=== PATIENT | male | born 1965 | race African-American/Black ===

== ENCOUNTER 2018-01-04 11:24 | Inpatient (IN) | payer OTHER ==
[2018-01-04 12:53] VITALS: BMI 19.4
--- NOTE | 2018-01-04 14:55 | HP ---
CIWA Score - CIWA Score Nausea/Vomitin-Mild Nausea/No Vomiting Muscle Tremors: 4-Moderate,w/Arms Extend Anxiety: 4-Mod. Anxious/Guarded Agitation: 4-Moderately Restless Paroxysmal Sweats: 1-Minimal Palms Moist Orientation: 3-Disoriented Date>2 days Tacttile Disturbances: 0-None Auditory Disturbances: 0-None Visual Disturbances: 0-None Headache: 1-Very Mild CIWA-Ar Total Score: 18 Admission ROS S - HPI Chief Complaint: withdrawal sx Allergies/Adverse Reactions: Allergies Allergy/AdvReac Type Severity Reaction Status Date / Time strawberry [[place]] Allergy Severe Hives Verified 01/04/18 14:43 No Known Drug Allergies Allergy Verified 01/04/18 14:43 NKDA Allergy Uncoded 07/21/14 15:15 History of Present Illness: 52 years old male with long history of alcohol nicotine dependence methadone 10 mg daily last dose 12/28/17 patient dose not want to stay in the methadone program does not want the methadone while in detox patient dose not want to the psychiatrist Exam Limitations: No Limitations - Ebola screening Have you traveled outside of the country in the last 21 days: No Have you had contact with anyone from an Ebola affected area: No Have you been sick,other than usual withdrawal symptoms: No Do you have a fever: No - Review of Systems Constitutional: No Symptoms Reported, Chills, Weight Stable EENT: reports: No Symptoms Reported Respiratory: reports: No Symptoms reported Cardiac: reports: No Symptoms Reported GI: reports: Nausea, Poor Fluid Intake, Abdominal cramping : reports: No Symptoms Reported, Other (left kidney removed) Musculoskeletal: reports: No Symptoms Reported Integumentary: reports: No Symptoms Reported Neuro: reports: Tremors Endocrine: reports: No Symptoms Reported Hematology: reports: No Symptoms Reported Psychiatric: reports: Judgement Intact, Mood/Affect Appropiate Other Systems: Reviewed and Negative Patient History - Patient Medical History Hx Anemia: No Hx Asthma: No Hx Chronic Obstructive Pulmonary Disease (COPD): No Hx Cancer: No Hx Cardiac Disorders: No Hx Congestive Heart Failure: No Hx Hypertension: Yes Hx Hypercholesterolemia: No Hx Pacemaker: No HX Cerebrovascular Accident: No Hx Seizures: No Hx Dementia: No Hx Diabetes: No Hx Gastrointestinal Disorders: No Hx Liver Disease: No Hx Genitourinary Disorders: No Hx Sexually Transmitted Disorders: No Hx Renal Disease (ESRD): No Hx Thyroid Disease: No Hx Human Immunodeficiency Virus (HIV): No (NEGTATIVE HX) Hx Hepatitis C: No Hx Depression: No Hx Suicide Attempt: No Hx Bipolar Disorder: No Hx Schizophrenia: No (no meds) - Patient Surgical History Past Surgical History: Yes Hx Neurologic Surgery: Yes ( FACIAL SX DUE TO THROWN OUT OF 6TH FLOOR WINDOW in 2000 and 2007) Hx Cataract Extraction: No Hx Cardiac Surgery: No Hx Lung Surgery: No Hx Breast Surgery: No Hx Breast Biopsy: No Hx Abdominal Surgery: No Hx Appendectomy: No Hx Cholecystectomy: No Hx Genitourinary Surgery: Yes (2003 left kidney) Hx Orthopedic Surgery: No Other Surgical History: mandible in 06/09/2014, elbows/knees (fall) Anesthesia Reaction: No - PPD History Previous Implant?: Yes Documented Results: Negative w/proof Implanted On Prior R Admission?: Yes Date: 07/12/14 Results: 0 mm PPD to be Administered?: Yes - Smoking Cessation Smoking history: Current every day smoker Have you smoked in the past 12 months: Yes Aproximately how many cigarettes per day: 3 Cigars Per Day: 0 Hx Chewing Tobacco Use: No Initiated information on smoking cessation: Yes 'Breaking Loose' booklet given: 01/04/18 - Substance & Tx. History Hx Alcohol Use: Yes Hx Substance Use: Yes Substance Use Type: Alcohol, Cocaine, Heroin Hx Substance Use Treatment: Yes (2012) Family Disease History - Family Disease History Family Disease History: Heart Disease: Father (), CA: Grandparent, Mother (), Respiratory: Brother, Sister, Other: Father, Mother Admission Physical Exam S - Vital Signs Vital Signs: Vital Signs - 24 hr 01/04/18 12:46 Temperature 96.2 F L Pulse Rate 70 Respiratory 20 Rate Blood Pressure 112/76 - Physical General Appearance: Yes: Appropriately Dressed, Thin, Tremorous, Irritable, Sweating, Anxious HEENTM: Yes: Hearing grossly Normal, Normal ENT Inspection, Normocephalic, Normal Voice Respiratory: Yes: Chest Non-Tender, Lungs Clear, Normal Breath Sounds, No Respiratory Distress, No Accessory Muscle Use Neck: Yes: Supple, Trachea in good position Cardiology: Yes: S1, S2, Irregularly Irregular Abdominal: Yes: Non Tender, Soft, Increased Bowel Sounds Genitourinary: Yes: Within Normal Limits Back: Yes: Normal Inspection Musculoskeletal: Yes: full range of Motion, Gait Steady Extremities: Yes: Normal Inspection (scars elbows), Normal Range of Motion, Non- Tender, Tremors Neurological: Yes: Alert, Motor Strength 5/5, Normal Mood/Affect, Normal Response Integumentary: Yes: Warm Lymphatic: Yes: Within Normal Limits - Diagnostic (1) Alcohol dependence with uncomplicated withdrawal Current Visit: Yes Status: Acute (2) Status post nephrectomy Current Visit: Yes Status: Resolved Comment: left (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 Qualifiers: Encounter type: sequela Laterality: unspecified laterality Qualified Code (s): S04.50XS - Injury of facial nerve, unspecified side, sequela Comment: in the process of reconstruction 2000 - 2009 Cleared for Admission [facility] - Detox or Rehab [facility] Level of Care: Medically Managed Detox Regimen/Protocol: Librium [facility] Breath Alcohol Content Breath Alcohol Content: 0 Urine Drug Screen - Results Drug Screen Negative: No Urine Drug Screen Results: MICHAEL-Cocaine, MTD-Methadone
[2018-01-04] MEDS ORDERED: NICOTINE POLACRILEX 2 MG GUM BC PRN (15:14)
[2018-01-04] MEDS ORDERED: ACETAMINOPHEN 325 MG TABLET (FP) PO PRN (15:14)
[2018-01-04] MEDS ORDERED: LOPERAMIDE HCL 2 MG CAPSULE PO PRN (15:14)
[2018-01-04] MEDS ORDERED: MAGNESIUM HYDROX 2400MG/30ML ORAL SUSPENSION 30 ML CUP PO PRN (15:14)
[2018-01-04] MEDS ORDERED: IBUPROFEN 400 MG TABLET (FP) PO PRN (15:14)
[2018-01-04] MEDS ORDERED: guaiFENesin/D-METHORPHAN HB 10 ML UNIT-DOSE CUPS PO PRN (15:14)
[2018-01-04] MEDS ORDERED: chlordiazePOXIDE HCL 25 MG CAPSULE PO PRN (15:14)
[2018-01-04] MEDS ORDERED: MAG HYDROX/AL HYDROX/SIMETH 30 ML UNIT-DOSE CUP PO PRN (15:14)
[2018-01-04] MEDS ORDERED: MAGNESIUM CITRATE 300 ML BOTTLE PO PRN (15:14)
[2018-01-04] MEDS ORDERED: MENTHOL/PHENOL 1 EACH UD MM PRN (15:14)
[2018-01-04] MEDS ORDERED: P-EPHED 60MG/TRIPROLIDI 2.5MG TABLET PO PRN (15:14)
[2018-01-04] MEDS: THIAMINE HCL 100 MG TABLET (FP) PO SCH (22:13)
[2018-01-04] MEDS: chlordiazePOXIDE HCL 25 MG CAPSULE PO SCH (22:14)
[2018-01-05 00:31] LABS: URINE APPEARANCE SLCLOUDY; URINE BILIRUBIN NEGATIVE (NEGATIVE); URINE BLOOD NEGATIVE (NEGATIVE); URINE COLOR YELLOW; URINE GLUCOSE (UA) NEGATIVE (NEGATIVE); URINE KETONE NEGATIVE (NEGATIVE); URINE LEUK ESTERASE NEGATIVE (NEGATIVE); URINE NITRITE NEGATIVE (NEGATIVE); URINE UROBILINOGEN NEGATIVE mg/dL (0.2-1.0)
[2018-01-05 00:44] LABS: URINE PROTEIN 1+ (NEGATIVE)
[2018-01-05 00:53] LABS: CALCIUM OXALATE CRYSTALS MODERATE /hpf (NONE SEEN); EPI CELLS RARE /HPF (FEW); URINE HYALINE CAST 3 /lpf; URINE MUCUS MANY
[2018-01-05] MEDS: chlordiazePOXIDE HCL 25 MG CAPSULE PO SCH ×4 (05:58→22:27)
[2018-01-05 10:07] LABS: HEMATOCRIT 44.6 % (35.4-49); HEMOGLOBIN 14.5 GM/dL (11.7-16.9); MCH 28.2 pg (25.7-33.7); MCHC 32.5 g/dl (32.0-35.9); MEAN CELL VOLUME 86.8 fl (80-96); MEAN PLT VOLUME 10.1 fl (7.5-11.1); PLATELET COUNT 227 K/MM3 (134-434); RBC 5.14 M/mm3 (4.00-5.60); RDW 14.4 % (11.9-15.9); WHITE BLOOD COUNT 7.8 K/mm3 (4.0-10.0)
[2018-01-05 10:27] LABS: CHLORIDE 105 mmol/L (98-107); POTASSIUM 4.1 mmol/L (3.5-5.1); SODIUM 140 mmol/L (136-145)
[2018-01-05 10:33] LABS: ALBUMIN 3.9 g/dl (3.4-5.0); ALK PHOS 88 U/L (45-117); ANION GAP 6 (8-16); BILIRUBIN,TOTAL 0.5 mg/dL (0.2-1.0); BLOOD UREA NITROGEN 24 mg/dL (7-18); CALCIUM 8.9 mg/dL (8.5-10.1); CO2 29 mmol/L (21-32); CREATININE 1.1 mg/dL (0.7-1.3); GLUCOSE,RANDOM 87 mg/dL (74-106); SGOT/AST 40 U/L (15-37); SGPT/ALT 34 U/L (12-78); TOT PROT 7.5 g/dl (6.4-8.2)
[2018-01-05] MEDS: PRENATAL VITAMINS W/ FOLIC ACID TABLET (FP) PO SCH (10:50)
[2018-01-05] MEDS: HYDROCHLOROTHIAZIDE 25 MG TABLET (FP) PO SCH (10:50)
[2018-01-05] MEDS: ASPIRIN 81 MG CHEWABLE TABLETS PO SCH (10:50)
[2018-01-05] MEDS: NICOTINE 14 MG/24 HOURS TOPICAL PATCH TD SCH (10:50)
--- NOTE | 2018-01-05 15:11 | EKG ---
Test Reason : Blood Pressure : / mmHG Vent. Rate : 070 BPM Atrial Rate : 070 BPM P-R Int : 120 ms QRS Dur : 080 ms QT Int : 462 ms P-R-T Axes : 055 095 094 degrees QTc Int : 498 ms NORMAL SINUS RHYTHM RIGHTWARD AXIS PROLONGED QT ABNORMAL ECG NO PREVIOUS ECGS AVAILABLE Confirmed by ABHISHEK AG MD ([id number]) on 01/05/2018 3:11:24 PM Referred By: Confirmed By:ABHISHEK AG MD
--- NOTE | 2018-01-05 16:12 | PN ---
[facility] CIWA - CIWA Score Nausea/Vomitin-No Nausea/No Vomiting Muscle Tremors: 3 Anxiety: 4-Mod. Anxious/Guarded Agitation: 3 Paroxysmal Sweats: 3 Orientation: 0-Oriented Tacttile Disturbances: 2-Mild Itch/Numbness/Burn Auditory Disturbances: 2-Mild Harshness/Frighten Visual Disturbances: 0-None Headache: 0-None Present CIWA-Ar Total Score: 17 BHS Progress Note (SOAP) Subjective: Tremors, Body Aches, Stomach Cramping, Sweating. Objective: PATIENT A & O X 3, OBSERVED AMBULATING ON UNIT. NO ACUTE DISTRESS. 01/05/18 16:11 Vital Signs Temperature 97.3 F L 01/05/18 13:39 Pulse Rate 73 01/05/18 13:39 Respiratory Rate 18 01/05/18 13:39 Blood Pressure 143/85 01/05/18 13:39 O2 Sat by Pulse Oximetry (%) Laboratory Tests 01/05/18 01/05/18 01/05/18 00:05 06:00 06:00 WBC 7.8 D RBC 5.14 Hgb 14.5 Hct 44.6 MCV 86.8 MCH 28.2 MCHC 32.5 RDW 14.4 Plt Count 227 MPV 10.1 Sodium 140 Potassium 4.1 Chloride 105 Carbon Dioxide 29 Anion Gap 6 L BUN 24 H D Creatinine 1.1 Creat Clearance w eGFR > 60 Random Glucose 87 D Calcium 8.9 Total Bilirubin 0.5 D AST 40 H D ALT 34 Alkaline Phosphatase 88 Total Protein 7.5 Albumin 3.9 Urine Color Yellow Urine Appearance Slcloudy Urine pH 5.0 Ur Specific [place] 1.024 Urine Protein 1+ H Urine Glucose (UA) Negative Urine Ketones Negative Urine Blood Negative Urine Nitrite Negative Urine Bilirubin Negative Urine Urobilinogen Negative Ur Leukocyte Esterase Negative Urine WBC (Auto) 5 Urine RBC (Auto) 8 Ur Epithelial Cells Rare Calcium Oxalate Crystal Moderate Hyaline Casts 3 Urine Mucus Many RPR Titer 01/05/18 06:00 WBC RBC Hgb Hct MCV MCH MCHC RDW Plt Count MPV Sodium Potassium Chloride Carbon Dioxide Anion Gap BUN Creatinine Creat Clearance w eGFR Random Glucose Calcium Total Bilirubin AST ALT Alkaline Phosphatase Total Protein Albumin Urine Color Urine Appearance Urine pH Ur Specific [place] Urine Protein Urine Glucose (UA) Urine Ketones Urine Blood Urine Nitrite Urine Bilirubin Urine Urobilinogen Ur Leukocyte Esterase Urine WBC (Auto) Urine RBC (Auto) Ur Epithelial Cells Calcium Oxalate Crystal Hyaline Casts Urine Mucus RPR Titer Nonreactive LABS NOTED. Assessment: 01/05/18 16:11 WITHDRAWAL SYMPTOMS. Plan: CONTINUE DETOX. INCREASE DAILY PO FLUID INTAKE.
[2018-01-05] MEDS: THIAMINE HCL 100 MG TABLET (FP) PO SCH (22:27)
[2018-01-06] MEDS: chlordiazePOXIDE HCL 25 MG CAPSULE PO SCH ×3 (05:37→17:04)
[2018-01-06] MEDS: PRENATAL VITAMINS W/ FOLIC ACID TABLET (FP) PO SCH (10:28)
[2018-01-06] MEDS: ASPIRIN 81 MG CHEWABLE TABLETS PO SCH (10:29)
[2018-01-06] MEDS: NICOTINE 14 MG/24 HOURS TOPICAL PATCH TD SCH (10:29)
[2018-01-06] MEDS: HYDROCHLOROTHIAZIDE 25 MG TABLET (FP) PO SCH (10:29)
--- NOTE | 2018-01-06 16:36 | PN ---
[facility] CIWA - CIWA Score Nausea/Vomitin-No Nausea/No Vomiting Muscle Tremors: 3 Anxiety: 3 Agitation: 2 Paroxysmal Sweats: 3 Orientation: 2-Disoriented Date<2 days Tacttile Disturbances: 2-Mild Itch/Numbness/Burn Auditory Disturbances: 1-Very Mild Visual Disturbances: 0-None Headache: 0-None Present CIWA-Ar Total Score: 16 BHS Progress Note (SOAP) Subjective: Tremors, Body Aches, Sweating,. Objective: PATIENT A & O X 2 (UNCERTAIN ABOUT CURRENT DAY/ DATE). PATIENT OBSERVED AMBULATING ON UNIT. NO ACUTE DISTRESS. 01/06/18 16:34 Vital Signs Temperature 97.3 F L 01/06/18 14:59 Pulse Rate 71 01/06/18 14:59 Respiratory Rate 18 01/06/18 14:59 Blood Pressure 147/85 01/06/18 14:59 O2 Sat by Pulse Oximetry (%) Laboratory Tests 01/05/18 01/05/18 01/05/18 00:05 06:00 06:00 WBC 7.8 D RBC 5.14 Hgb 14.5 Hct 44.6 MCV 86.8 MCH 28.2 MCHC 32.5 RDW 14.4 Plt Count 227 MPV 10.1 Sodium 140 Potassium 4.1 Chloride 105 Carbon Dioxide 29 Anion Gap 6 L BUN 24 H D Creatinine 1.1 Creat Clearance w eGFR > 60 Random Glucose 87 D Calcium 8.9 Total Bilirubin 0.5 D AST 40 H D ALT 34 Alkaline Phosphatase 88 Total Protein 7.5 Albumin 3.9 Urine Color Yellow Urine Appearance Slcloudy Urine pH 5.0 Ur Specific [place] 1.024 Urine Protein 1+ H Urine Glucose (UA) Negative Urine Ketones Negative Urine Blood Negative Urine Nitrite Negative Urine Bilirubin Negative Urine Urobilinogen Negative Ur Leukocyte Esterase Negative Urine WBC (Auto) 5 Urine RBC (Auto) 8 Ur Epithelial Cells Rare Calcium Oxalate Crystal Moderate Hyaline Casts 3 Urine Mucus Many RPR Titer 01/05/18 06:00 WBC RBC Hgb Hct MCV MCH MCHC RDW Plt Count MPV Sodium Potassium Chloride Carbon Dioxide Anion Gap BUN Creatinine Creat Clearance w eGFR Random Glucose Calcium Total Bilirubin AST ALT Alkaline Phosphatase Total Protein Albumin Urine Color Urine Appearance Urine pH Ur Specific [place] Urine Protein Urine Glucose (UA) Urine Ketones Urine Blood Urine Nitrite Urine Bilirubin Urine Urobilinogen Ur Leukocyte Esterase Urine WBC (Auto) Urine RBC (Auto) Ur Epithelial Cells Calcium Oxalate Crystal Hyaline Casts Urine Mucus RPR Titer Nonreactive LABS NOTED. Assessment: 01/06/18 16:35 WITHDRAWAL SYMPTOMS. Plan: CONTINUE DETOX.
[2018-01-06] MEDS: chlordiazePOXIDE 5 MG CAPSULE PO SCH (22:39)
[2018-01-06] MEDS: THIAMINE HCL 100 MG TABLET (FP) PO SCH (22:39)
[2018-01-07] MEDS: chlordiazePOXIDE 5 MG CAPSULE PO SCH ×3 (05:29→17:47)
[2018-01-07] MEDS: ASPIRIN 81 MG CHEWABLE TABLETS PO SCH (10:32)
[2018-01-07] MEDS: NICOTINE 14 MG/24 HOURS TOPICAL PATCH TD SCH (10:32)
[2018-01-07] MEDS: PRENATAL VITAMINS W/ FOLIC ACID TABLET (FP) PO SCH (10:32)
[2018-01-07] MEDS: HYDROCHLOROTHIAZIDE 25 MG TABLET (FP) PO SCH (10:32)
--- NOTE | 2018-01-07 14:15 | PN ---
BHS Progress Note (SOAP) Subjective: Anxious, sweating, interrupted sleep Objective: 01/07/18 14:11 Last Vital Signs Temp Pulse Resp BP Pulse Ox 96.0 F L 76 18 95/68 01/07/18 09:38 01/07/18 09:38 01/07/18 09:38 01/07/18 09:38 Laboratory Tests 01/05/18 01/05/18 01/05/18 00:05 06:00 06:00 WBC 7.8 D RBC 5.14 Hgb 14.5 Hct 44.6 MCV 86.8 MCH 28.2 MCHC 32.5 RDW 14.4 Plt Count 227 MPV 10.1 Sodium 140 Potassium 4.1 Chloride 105 Carbon Dioxide 29 Anion Gap 6 L BUN 24 H D Creatinine 1.1 Creat Clearance w eGFR > 60 Random Glucose 87 D Calcium 8.9 Total Bilirubin 0.5 D AST 40 H D ALT 34 Alkaline Phosphatase 88 Total Protein 7.5 Albumin 3.9 Urine Color Yellow Urine Appearance Slcloudy Urine pH 5.0 Ur Specific [place] 1.024 Urine Protein 1+ H Urine Glucose (UA) Negative Urine Ketones Negative Urine Blood Negative Urine Nitrite Negative Urine Bilirubin Negative Urine Urobilinogen Negative Ur Leukocyte Esterase Negative Urine WBC (Auto) 5 Urine RBC (Auto) 8 Ur Epithelial Cells Rare Calcium Oxalate Crystal Moderate Hyaline Casts 3 Urine Mucus Many RPR Titer 01/05/18 06:00 WBC RBC Hgb Hct MCV MCH MCHC RDW Plt Count MPV Sodium Potassium Chloride Carbon Dioxide Anion Gap BUN Creatinine Creat Clearance w eGFR Random Glucose Calcium Total Bilirubin AST ALT Alkaline Phosphatase Total Protein Albumin Urine Color Urine Appearance Urine pH Ur Specific [place] Urine Protein Urine Glucose (UA) Urine Ketones Urine Blood Urine Nitrite Urine Bilirubin Urine Urobilinogen Ur Leukocyte Esterase Urine WBC (Auto) Urine RBC (Auto) Ur Epithelial Cells Calcium Oxalate Crystal Hyaline Casts Urine Mucus RPR Titer Nonreactive Labs reviewed: bun 24, UA shows 1+ protein Assessment: 01/07/18 14:12 Withdrawal symptoms Noted with azotemia and proteinuria Plan: Continue detox Azotemia: encouraged increased PO hydration (water) Proteinuria: encouraged to drink more water, repeat UA
[2018-01-07] MEDS: chlordiazePOXIDE HCL 10 MG CAPSULE PO SCH (22:26)
[2018-01-07] MEDS: THIAMINE HCL 100 MG TABLET (FP) PO SCH (22:26)
[2018-01-08] MEDS: chlordiazePOXIDE HCL 10 MG CAPSULE PO SCH ×2 (05:21→12:02)
--- NOTE | 2018-01-08 09:41 | PN ---
BHS Progress Note (SOAP) Subjective: LAST DAY OF LIBRIUM. ALERT O X 3. NAD. PT SCHEDULED TO GO TO REHAB. Objective: 01/08/18 11:59 Vital Signs Temperature 95.6 F L 01/08/18 09:37 Pulse Rate 75 01/08/18 09:37 Respiratory Rate 18 01/08/18 09:37 Blood Pressure 110/69 01/08/18 09:37 O2 Sat by Pulse Oximetry (%) Laboratory Last Values WBC 7.8 K/mm3 (4.0-10.0) D 01/05/18 06:00 RBC 5.14 M/mm3 (4.00-5.60) 01/05/18 06:00 Hgb 14.5 GM/dL (11.7-16.9) 01/05/18 06:00 Hct 44.6 % (35.4-49) 01/05/18 06:00 MCV 86.8 fl (80-96) 01/05/18 06:00 MCH 28.2 pg (25.7-33.7) 01/05/18 06:00 MCHC 32.5 g/dl (32.0-35.9) 01/05/18 06:00 RDW 14.4 % (11.9-15.9) 01/05/18 06:00 Plt Count 227 K/MM3 (134-434) 01/05/18 06:00 MPV 10.1 fl (7.5-11.1) 01/05/18 06:00 Sodium 140 mmol/L (136-145) 01/05/18 06:00 Potassium 4.1 mmol/L (3.5-5.1) 01/05/18 06:00 Chloride 105 mmol/L (98-107) 01/05/18 06:00 Carbon Dioxide 29 mmol/L (21-32) 01/05/18 06:00 Anion Gap 6 (8-16) L 01/05/18 06:00 BUN 24 mg/dL (7-18) H D 01/05/18 06:00 Creatinine 1.1 mg/dL (0.7-1.3) 01/05/18 06:00 Creat Clearance w eGFR > 60 (>60) 01/05/18 06:00 Random Glucose 87 mg/dL (74-106) D 01/05/18 06:00 Calcium 8.9 mg/dL (8.5-10.1) 01/05/18 06:00 Total Bilirubin 0.5 mg/dL (0.2-1.0) D 01/05/18 06:00 AST 40 U/L (15-37) H D 01/05/18 06:00 ALT 34 U/L (12-78) 01/05/18 06:00 Alkaline Phosphatase 88 U/L (45-117) 01/05/18 06:00 Total Protein 7.5 g/dl (6.4-8.2) 01/05/18 06:00 Albumin 3.9 g/dl (3.4-5.0) 01/05/18 06:00 Urine Color Ltyellow 01/08/18 08:30 Urine Appearance Slcloudy 01/08/18 08:30 Urine pH 7.0 (5.0-8.0) D 01/08/18 08:30 Ur Specific [place] 1.015 (1.001-1.035) 01/08/18 08:30 Urine Protein Negative (NEGATIVE) 01/08/18 08:30 Urine Glucose (UA) Negative (NEGATIVE) 01/08/18 08:30 Urine Ketones Negative (NEGATIVE) 01/08/18 08:30 Urine Blood Negative (NEGATIVE) 01/08/18 08:30 Urine Nitrite Negative (NEGATIVE) 01/08/18 08:30 Urine Bilirubin Negative (NEGATIVE) 01/08/18 08:30 Urine Urobilinogen Negative mg/dL (0.2-1.0) 01/08/18 08:30 Ur Leukocyte Esterase Negative (NEGATIVE) 01/08/18 08:30 Urine WBC (Auto) 5 /hpf (3-5) 01/05/18 00:05 Urine RBC (Auto) 8 /hpf (0-3) 01/05/18 00:05 Ur Epithelial Cells Rare /HPF (FEW) 01/05/18 00:05 Calcium Oxalate Crystal Moderate /hpf (NONE SEEN) 01/05/18 00:05 Hyaline Casts 3 /lpf 01/05/18 00:05 Urine Mucus Many 01/05/18 00:05 RPR Titer Nonreactive (NONREACTIVE) 01/05/18 06:00 Assessment: 01/08/18 11:59 WITHDRAWAL SX Plan: D/C PT TO REHAB IF BED AVAILABLE. ADDENDUM: PT WENT HOME TODAY REFERRED TO [facility] PER COUNSELOR JEFFREY ROBLES
[2018-01-08 10:30] LABS: URINE APPEARANCE SLCLOUDY; URINE BILIRUBIN NEGATIVE (NEGATIVE); URINE BLOOD NEGATIVE (NEGATIVE); URINE COLOR LTYELLOW; URINE GLUCOSE (UA) NEGATIVE (NEGATIVE); URINE KETONE NEGATIVE (NEGATIVE); URINE LEUK ESTERASE NEGATIVE (NEGATIVE); URINE NITRITE NEGATIVE (NEGATIVE); URINE PROTEIN NEGATIVE (NEGATIVE); URINE UROBILINOGEN NEGATIVE mg/dL (0.2-1.0)
[2018-01-08] MEDS: HYDROCHLOROTHIAZIDE 25 MG TABLET (FP) PO SCH (10:51)
[2018-01-08] MEDS: ASPIRIN 81 MG CHEWABLE TABLETS PO SCH (10:51)
[2018-01-08] MEDS: PRENATAL VITAMINS W/ FOLIC ACID TABLET (FP) PO SCH (10:51)
[2018-01-08] MEDS: NICOTINE 14 MG/24 HOURS TOPICAL PATCH TD SCH (10:51)
[2018-01-08 13:51] VITALS: BP 105/73; PULSE 85; TEMP 97.8
--- NOTE | 2018-01-08 16:16 | DS ---
[facility] Detox Discharge Summary Admission Date: 01/04/18 - History Present History: Alcohol Dependence Pertinent Past History: s/p nephrectomy facial nerve trauma nicotine dependence - Physical Exam Results Vital Signs: Vital Signs Temperature 97.8 F 01/08/18 13:50 Pulse Rate 85 01/08/18 13:50 Respiratory Rate 18 01/08/18 13:50 Blood Pressure 105/73 01/08/18 13:50 O2 Sat by Pulse Oximetry (%) Pertinent Admission Physical Exam Findings: Vital Signs Temperature 97.8 F 01/08/18 13:50 Pulse Rate 85 01/08/18 13:50 Respiratory Rate 18 01/08/18 13:50 Blood Pressure 105/73 01/08/18 13:50 O2 Sat by Pulse Oximetry (%) Laboratory Last Values WBC 7.8 K/mm3 (4.0-10.0) D 01/05/18 06:00 RBC 5.14 M/mm3 (4.00-5.60) 01/05/18 06:00 Hgb 14.5 GM/dL (11.7-16.9) 01/05/18 06:00 Hct 44.6 % (35.4-49) 01/05/18 06:00 MCV 86.8 fl (80-96) 01/05/18 06:00 MCH 28.2 pg (25.7-33.7) 01/05/18 06:00 MCHC 32.5 g/dl (32.0-35.9) 01/05/18 06:00 RDW 14.4 % (11.9-15.9) 01/05/18 06:00 Plt Count 227 K/MM3 (134-434) 01/05/18 06:00 MPV 10.1 fl (7.5-11.1) 01/05/18 06:00 Sodium 140 mmol/L (136-145) 01/05/18 06:00 Potassium 4.1 mmol/L (3.5-5.1) 01/05/18 06:00 Chloride 105 mmol/L (98-107) 01/05/18 06:00 Carbon Dioxide 29 mmol/L (21-32) 01/05/18 06:00 Anion Gap 6 (8-16) L 01/05/18 06:00 BUN 24 mg/dL (7-18) H D 01/05/18 06:00 Creatinine 1.1 mg/dL (0.7-1.3) 01/05/18 06:00 Creat Clearance w eGFR > 60 (>60) 01/05/18 06:00 Random Glucose 87 mg/dL (74-106) D 01/05/18 06:00 Calcium 8.9 mg/dL (8.5-10.1) 01/05/18 06:00 Total Bilirubin 0.5 mg/dL (0.2-1.0) D 01/05/18 06:00 AST 40 U/L (15-37) H D 01/05/18 06:00 ALT 34 U/L (12-78) 01/05/18 06:00 Alkaline Phosphatase 88 U/L (45-117) 01/05/18 06:00 Total Protein 7.5 g/dl (6.4-8.2) 01/05/18 06:00 Albumin 3.9 g/dl (3.4-5.0) 01/05/18 06:00 Urine Color Ltyellow 01/08/18 08:30 Urine Appearance Slcloudy 01/08/18 08:30 Urine pH 7.0 (5.0-8.0) D 01/08/18 08:30 Ur Specific [place] 1.015 (1.001-1.035) 01/08/18 08:30 Urine Protein Negative (NEGATIVE) 01/08/18 08:30 Urine Glucose (UA) Negative (NEGATIVE) 01/08/18 08:30 Urine Ketones Negative (NEGATIVE) 01/08/18 08:30 Urine Blood Negative (NEGATIVE) 01/08/18 08:30 Urine Nitrite Negative (NEGATIVE) 01/08/18 08:30 Urine Bilirubin Negative (NEGATIVE) 01/08/18 08:30 Urine Urobilinogen Negative mg/dL (0.2-1.0) 01/08/18 08:30 Ur Leukocyte Esterase Negative (NEGATIVE) 01/08/18 08:30 Urine WBC (Auto) 5 /hpf (3-5) 01/05/18 00:05 Urine RBC (Auto) 8 /hpf (0-3) 01/05/18 00:05 Ur Epithelial Cells Rare /HPF (FEW) 01/05/18 00:05 Calcium Oxalate Crystal Moderate /hpf (NONE SEEN) 01/05/18 00:05 Hyaline Casts 3 /lpf 01/05/18 00:05 Urine Mucus Many 01/05/18 00:05 RPR Titer Nonreactive (NONREACTIVE) 01/05/18 06:00 - Treatment Hospital Course: Detox Protocol Followed, Detoxed Safely, Responded well, Discharged Condition Good, Rehab Referral Accepted Patient has Accepted a Rehab Referral to: [facility] - Medication Discharge Medications: Ambulatory Orders Aspirin [ASA -] 81 mg PO DAILY 01/04/18 Hydrochlorothiazide [Hctz -] 25 mg PO DAILY 01/04/18 Multivitamins [Tab-A-Vit -] 1 tab PO DAILY 01/04/18 - Diagnosis (1) Alcohol dependence with uncomplicated withdrawal Status: Acute (2) Nicotine dependence Status: Acute Qualifiers: Nicotine product type: cigarettes Substance use status: in withdrawal Qualified Code(s): F17.213 - Nicotine dependence, cigarettes, with withdrawal (3) Alcohol dependence Status: Chronic (4) Cocaine dependence Status: Chronic (5) Facial nerve trauma Status: Chronic Qualifiers: Encounter type: sequela Laterality: unspecified laterality Qualified Code (s): S04.50XS - Injury of facial nerve, unspecified side, sequela (6) Hypertension Status: Chronic Qualifiers: Hypertension type: essential hypertension Qualified Code(s): I10 - Essential (primary) hypertension (7) Status post nephrectomy Status: Resolved - AMA Did Patient Leave Against Medical Advice: No
== END 2018-01-08 01:55 | disposition home or self-care (01) | DRG 774 ==
LOC: YASAS 11:24 → Y3N 15:30
PROVIDERS: ADMIT Internal Medicine; ATTEND Internal Medicine
PROC: HZ2ZZZZ Detoxification Services for Substance Abuse Treatment (ICD-10-PCS; principal; 2018-01-04)
DX: F10.230 Alcohol dependence with withdrawal, uncomplicated (principal); F14.20 Cocaine dependence, uncomplicated; F17.213 Nicotine dependence, cigarettes, with withdrawal; I10 Essential (primary) hypertension; Z79.82 Long term (current) use of aspirin; Z90.5 Acquired absence of kidney
CPT/HCPCS: 36415; 80053; 81003; 81015; 85027; 86593; 93005; 93010

== ENCOUNTER 2023-06-05 16:26 | Inpatient (IN) | payer OTHER ==
[2023-06-05 17:55] VITALS: BMI 16.1
[2023-06-05] MEDS ORDERED: P-EPHED 60MG/TRIPROLIDI 2.5MG TABLET PO PRN (20:09)
[2023-06-05] MEDS ORDERED: guaiFENesin 600 MG TABLET.ER (FP) PO PRN (20:09)
[2023-06-05] MEDS ORDERED: BENZOCAINE/MENTHOL (CHLORASEPTIC ) LOZENGE MM PRN (20:09)
[2023-06-05] MEDS ORDERED: MAGNESIUM HYDROX 2400MG/30ML ORAL SUSPENSION 30 ML CUP PO PRN (20:09)
[2023-06-05] MEDS ORDERED: IBUPROFEN 600 MG TABLET (FP) PO PRN (20:09)
[2023-06-05] MEDS ORDERED: IBUPROFEN 400 MG TABLET (FP) PO PRN (20:09)
[2023-06-05] MEDS ORDERED: NICOTINE POLACRILEX 2 MG GUM BUC PRN (20:09)
[2023-06-05] MEDS ORDERED: POLYETHYLENE GLYCOL (HEALTHYLAX) 3350 17 GM PACKET PO PRN (20:09)
[2023-06-05] MEDS ORDERED: BENZONATATE 200 MG CAPSULE PO PRN (20:09)
[2023-06-05] MEDS ORDERED: hydrOXYzine PAMOATE 25 MG CAPSULE (FP) PO PRN (20:09)
[2023-06-05] MEDS ORDERED: MAG HYDROX/AL HYDROX/SIMETH 30 ML UNIT-DOSE CUP PO PRN (20:09)
[2023-06-05] MEDS ORDERED: AMMONIUM LACTATE 12% LOTION 225 GM BOTTLE TP PRN (20:09)
[2023-06-05] MEDS ORDERED: NALOXONE HCL (KLOXXADO) 8 MG SPRAY NS PRN (20:09)
[2023-06-05] MEDS ORDERED: COLLOIDAL OATMEAL 1 BAR EACH TP PRN (20:09)
[2023-06-05] MEDS ORDERED: NALOXONE HCL 0.4 MG/ML VIAL IM PRN (20:09)
[2023-06-05] MEDS ORDERED: LOPERAMIDE HCL 2 MG CAPSULE PO PRN (20:09)
[2023-06-05] MEDS ORDERED: MELATONIN 5 MG TABLETS PO SCH (22:00)
[2023-06-05] MEDS ORDERED: TUBERCULIN PPD 5 TU/0.1ML SYRINGE (IN PATIENT USE ONLY) ID ONE (23:55)
[2023-06-06] MEDS: THIAMINE HCL 100 MG TABLET (FP) PO SCH ×2 (01:11→21:32)
[2023-06-06] MEDS ORDERED: TUBERCULIN PPD 5 TU/0.1ML VIAL ID ONE (06:41)
[2023-06-06] MEDS: PRENATAL VITAMINS W/ FOLIC ACID TABLET (FP) PO SCH (09:18)
[2023-06-06] MEDS: ASPIRIN 81 MG CHEWABLE TABLETS PO SCH (09:18)
[2023-06-06 13:51] LABS: HEMATOCRIT 40.8 % (35.4-49); HEMOGLOBIN 13.3 GM/dL (11.7-16.9); MCH 27.3 pg (25.7-33.7); MCHC 32.5 g/dl (32.0-35.9); MEAN CELL VOLUME 83.9 fl (80-96); MEAN PLT VOLUME 9.7 fl (7.5-11.1); PLATELET COUNT 258 10^3/uL (134-434); RBC 4.87 M/mm3 (4.00-5.60); RDW 15.1 % (11.9-15.9); WHITE BLOOD COUNT 5.1 K/mm3 (4.0-10.0)
[2023-06-06 14:32] LABS: POTASSIUM 4.6 mmol/L (3.5-5.1)
[2023-06-06 14:34] LABS: CALCIUM 8.6 mg/dL (8.5-10.1)
[2023-06-06 14:35] LABS: ALBUMIN 3.1 g/dl (3.4-5.0)
[2023-06-06 14:38] LABS: CREATININE 0.9 mg/dL (0.55-1.3)
[2023-06-06 14:39] LABS: TOT PROT 6.3 g/dl (6.4-8.2)
[2023-06-06 14:40] LABS: BILIRUBIN,TOTAL 0.4 mg/dL (0.2-1)
[2023-06-06 15:22] LABS: SYPHILIS W/ RPR CONF NON-REACTIVE (NONREACTIVE)
[2023-06-06 19:18] LABS: URINE APPEARANCE CLEAR; URINE BILIRUBIN NEGATIVE (NEGATIVE); URINE COLOR YELLOW; URINE GLUCOSE (UA) NEGATIVE (NEGATIVE); URINE KETONE NEGATIVE (NEGATIVE); URINE LEUK ESTERASE NEGATIVE (NEGATIVE); URINE NITRITE NEGATIVE (NEGATIVE); URINE PROTEIN NEGATIVE (NEGATIVE); URINE UROBILINOGEN 0.2 mg/dL (0.2-1.0)
[2023-06-06] MEDS: diphenhydrAMINE HCL 25 MG CAPSULE (FP) PO SCH (21:32)
[2023-06-07] MEDS: ASPIRIN 81 MG CHEWABLE TABLETS PO SCH (10:01)
[2023-06-07] MEDS: PRENATAL VITAMINS W/ FOLIC ACID TABLET (FP) PO SCH (10:01)
[2023-06-07] MEDS: diphenhydrAMINE HCL 25 MG CAPSULE (FP) PO SCH (20:59)
[2023-06-07] MEDS: THIAMINE HCL 100 MG TABLET (FP) PO SCH (20:59)
[2023-06-08] MEDS: ASPIRIN 81 MG CHEWABLE TABLETS PO SCH (09:42)
[2023-06-08] MEDS: PRENATAL VITAMINS W/ FOLIC ACID TABLET (FP) PO SCH (09:42)
[2023-06-08] MEDS: THIAMINE HCL 100 MG TABLET (FP) PO SCH (21:27)
[2023-06-08] MEDS: diphenhydrAMINE HCL 25 MG CAPSULE (FP) PO SCH (21:28)
[2023-06-09] MEDS: ASPIRIN 81 MG CHEWABLE TABLETS PO SCH (10:26)
[2023-06-09] MEDS: PRENATAL VITAMINS W/ FOLIC ACID TABLET (FP) PO SCH (10:26)
[2023-06-09] MEDS: THIAMINE HCL 100 MG TABLET (FP) PO SCH (21:07)
[2023-06-09] MEDS: diphenhydrAMINE HCL 25 MG CAPSULE (FP) PO SCH (21:07)
[2023-06-10] MEDS: PRENATAL VITAMINS W/ FOLIC ACID TABLET (FP) PO SCH (10:03)
[2023-06-10] MEDS: ASPIRIN 81 MG CHEWABLE TABLETS PO SCH (10:03)
[2023-06-10] MEDS: THIAMINE HCL 100 MG TABLET (FP) PO SCH (21:03)
[2023-06-10] MEDS: diphenhydrAMINE HCL 25 MG CAPSULE (FP) PO SCH (21:04)
[2023-06-11] MEDS: PRENATAL VITAMINS W/ FOLIC ACID TABLET (FP) PO SCH (09:57)
[2023-06-11] MEDS: ASPIRIN 81 MG CHEWABLE TABLETS PO SCH (09:57)
[2023-06-11] MEDS: ACETAMINOPHEN 325 MG TABLET (FP) PO PRN (18:03)
[2023-06-11] MEDS: diphenhydrAMINE HCL 25 MG CAPSULE (FP) PO SCH (21:08)
[2023-06-11] MEDS: THIAMINE HCL 100 MG TABLET (FP) PO SCH (21:08)
[2023-06-12] MEDS: PRENATAL VITAMINS W/ FOLIC ACID TABLET (FP) PO SCH (10:08)
[2023-06-12] MEDS: ASPIRIN 81 MG CHEWABLE TABLETS PO SCH (10:08)
[2023-06-12] MEDS: ACETAMINOPHEN 325 MG TABLET (FP) PO PRN ×2 (10:08→21:05)
[2023-06-12] MEDS: diphenhydrAMINE HCL 25 MG CAPSULE (FP) PO SCH (21:05)
[2023-06-12] MEDS: THIAMINE HCL 100 MG TABLET (FP) PO SCH (21:05)
[2023-06-13] MEDS: ACETAMINOPHEN 325 MG TABLET (FP) PO PRN ×3 (02:02→21:12)
[2023-06-13] MEDS: PRENATAL VITAMINS W/ FOLIC ACID TABLET (FP) PO SCH (09:35)
[2023-06-13] MEDS: ASPIRIN 81 MG CHEWABLE TABLETS PO SCH (09:35)
[2023-06-13] MEDS: diphenhydrAMINE HCL 25 MG CAPSULE (FP) PO SCH (21:12)
[2023-06-13] MEDS: THIAMINE HCL 100 MG TABLET (FP) PO SCH (21:12)
[2023-06-14 06:21] VITALS: RESP 16
[2023-06-14] MEDS: ACETAMINOPHEN 325 MG TABLET (FP) PO PRN ×3 (06:42→21:12)
[2023-06-14] MEDS: ASPIRIN 81 MG CHEWABLE TABLETS PO SCH (10:07)
[2023-06-14] MEDS: PRENATAL VITAMINS W/ FOLIC ACID TABLET (FP) PO SCH (10:07)
[2023-06-14] MEDS ORDERED: LIDOCAINE 5% TOPICAL PATCH TP SCH (11:45)
[2023-06-14] MEDS: diphenhydrAMINE HCL 25 MG CAPSULE (FP) PO SCH (21:12)
[2023-06-14] MEDS: THIAMINE HCL 100 MG TABLET (FP) PO SCH (21:12)
[2023-06-14] MEDS ORDERED: METHYL SALICYLATE/MENTHOL OINT 30 GM TUBE TP SCH (22:00)
[2023-06-14] MEDS ORDERED: LIDOCAINE PATCH REMOVAL MC SCH (22:00)
[2023-06-15] MEDS: ACETAMINOPHEN 325 MG TABLET (FP) PO PRN (01:47)
[2023-06-15 06:28] VITALS: BP 137/91; PULSE 64; TEMP 97.3
== END 2023-06-15 09:05 | disposition home or self-care (01) | DRG 772 ==
LOC: YASAS 16:26 → Y3E 22:03
PROVIDERS: ADMIT Allergy & Immunology; ATTEND Psychiatry & Neurology Pain Medicine
PROC: HZ42ZZZ Group Counseling for Substance Abuse Treatment, Cognitive-Behavioral (ICD-10-PCS; principal; 2023-06-05)
DX: F14.20 Cocaine dependence, uncomplicated (principal); F13.20 Sedative, hypnotic or anxiolytic dependence, uncomplicated; F12.20 Cannabis dependence, uncomplicated; F17.210 Nicotine dependence, cigarettes, uncomplicated; H54.61 Unqualified visual loss, right eye, normal vision left eye; I10 Essential (primary) hypertension; M24.412 Recurrent dislocation, left shoulder; M25.512 Pain in left shoulder; G89.29 Other chronic pain
CPT/HCPCS: 36415; 80053; 81003; 85027; 86780; 86803; 87635